=== PATIENT | female | born 1990 | race Caucasian/White ===

== ENCOUNTER 2020-08-25 09:56 | Inpatient (IN) ==
--- NOTE | 2020-08-25 10:38 | Emergency Department Note ---
History of Present Illness General Chief complaint: Fever Stated complaint: FEVERS, HEADACHE Time Seen by Provider: 08/25/20 10:13 History of Present Illness Provider complaint: Fever headache body aches Onset (ago): week(s) 1 Location: head Severity: moderate Maximum Pain Intensity: 6 Current Pain Intensity: 6 Quality: + aching Associated symptoms: + fever/chills; no cough and no nausea/vomiting 29-year-old female presents emergency department for fever, headache, and body aches. Patient reports her symptoms began 1 week ago. She states she has been seen by multiple doctors including at this ER and has been told she is negative for COVID-19 as well as all other tests except for a urinary tract infection. She states her headache and body aches have gotten worse. She states her fever is gotten worse. She denies any rash. Home Medications Home Medications Medication Instructions Recorded Confirmed Type cephalexin [Keflex] 500 mg PO Q6H 7 Days #28 cap 08/21/20 08/25/20 Rx norethindrone-e.estradiol-iron 1 tab PO QAM 08/21/20 08/25/20 History [June12/02 (28)] ibuprofen 200 mg PO Q6H PRN 08/25/20 08/25/20 History Allergies Allergy/AdvReac Type Severity Reaction Status Date / Time aspirin Allergy Anaphylaxis Verified 08/25/20 13:33 ceftriaxone [From Rocephin] Allergy Anaphylaxis Verified 08/25/20 13:33 erythromycin base Allergy Anaphylaxis Verified 08/25/20 13:33 Penicillins Allergy Anaphylaxis Verified 08/25/20 13:33 metamizole Allergy Anaphylaxis Uncoded 08/25/20 13:33 Past Med/Surg History Medical History (Updated 08/25/20 @ 18:47 by Bear Meier) Acute UTI No pertinent family history Surgical History (Updated 08/25/20 @ 10:33 by Bear Meier) No pertinent past surgical history Social History Smoking Status: Never smoker Second Hand Exposure: No; Do You Dip or Chew Tobacco: No; Tobacco Cessation Education Requested by Patient: No Hx Alcohol Use: Yes Alcohol type: wine Hx Substance Use: No Preferred Language: Nepali Communication Ability: Effective Nylon Mender Required: No Beliefs That Will Affect Care: None Current Living Situation: Alone Other Information That Helps Us Care for You: No Feels Safe at Home: Yes Safety Concerns: Feels Safe At This Time Assistive Devices: None Review of Systems A total of 10 systems reviewed and were otherwise negative Physical Exam Vital Signs Vital Signs - 24 hr 08/25/20 10:01 08/25/20 11:35 08/25/20 12:00 Temperature 37 C Temperature Source Oral Pulse Rate 96 H 87 Pulse Rate [Apical] 84 Pulse Rate from SpO2 Sensor 87 Pulse Rhythm Regular Pulse Strength Normal Respiratory Rate 16 20 15 Respiratory Effort / Characteristics Non-Labored Spontaneous Non-Labored Spontaneous Respiratory Depth Normal Normal Respiratory Pattern Regular Regular Blood Pressure 106/70 110/54 L Blood Pressure [Right Arm] 109/63 Blood Pressure Mean 82 64 Blood Pressure Mean [Right Arm] 78 Blood Pressure Position Sitting Pulse Oximetry 98 100 100 Oxygen Delivery Method Room Air Room Air Sepsis Recent Fever Within 48 Hours No Sepsis New/Unexplained Change in Mental Status No Sepsis Action Taken by Nursing No Action Required 08/25/20 12:30 08/25/20 13:00 08/25/20 13:30 Temperature Temperature Source Pulse Rate 80 96 H 96 H Pulse Rate [Apical] Pulse Rate from SpO2 Sensor 79 95 H 90 Pulse Rhythm Pulse Strength Respiratory Rate 22 15 17 Respiratory Effort / Characteristics Respiratory Depth Respiratory Pattern Blood Pressure 103/58 L 104/54 L 98/59 L Blood Pressure [Right Arm] Blood Pressure Mean 66 59 73 Blood Pressure Mean [Right Arm] Blood Pressure Position Pulse Oximetry 99 99 100 Oxygen Delivery Method Sepsis Recent Fever Within 48 Hours Sepsis New/Unexplained Change in Mental Status Sepsis Action Taken by Nursing 08/25/20 13:32 08/25/20 14:37 08/25/20 15:29 Temperature Temperature Source Pulse Rate 106 H Pulse Rate [Apical] 98 H Pulse Rate from SpO2 Sensor 111 H 99 H Pulse Rhythm Pulse Strength Respiratory Rate 20 30 H Respiratory Effort / Characteristics Non-Labored Spontaneous Respiratory Depth Normal Respiratory Pattern Regular Blood Pressure 118/69 119/78 Blood Pressure [Right Arm] 98/59 L Blood Pressure Mean 92 90 Blood Pressure Mean [Right Arm] 72 Blood Pressure Position Pulse Oximetry 97 99 99 Oxygen Delivery Method Room Air Sepsis Recent Fever Within 48 Hours Sepsis New/Unexplained Change in Mental Status Sepsis Action Taken by Nursing 08/25/20 16:00 Temperature Temperature Source Pulse Rate Pulse Rate [Apical] Pulse Rate from SpO2 Sensor 96 H Pulse Rhythm Pulse Strength Respiratory Rate Respiratory Effort / Characteristics Respiratory Depth Respiratory Pattern Blood Pressure 129/73 Blood Pressure [Right Arm] Blood Pressure Mean 94 Blood Pressure Mean [Right Arm] Blood Pressure Position Pulse Oximetry 100 Oxygen Delivery Method Sepsis Recent Fever Within 48 Hours Sepsis New/Unexplained Change in Mental Status Sepsis Action Taken by Nursing Physical Exam GENERAL: She is oriented to person, place, and time. She appears well-developed and well-nourished. She does not appear distressed. HENT: Exam performed. -Head: Normocephalic and atraumatic. -Right Ear: External ear normal. No mastoid tenderness. -Left Ear: External ear normal. No mastoid tenderness. -Mouth/Throat: The oropharynx is clear and moist. No trismus in the jaw. No dental abscesses or uvula swelling. No oropharyngeal exudate or tonsillar abscesses. No oral ulcerations. EYES: Conjunctivae and EOM are normal. Pupils are equal, round, and reactive to light. Right eye exhibits no discharge. Left eye exhibits no discharge. No scleral icterus. Mild photophobia. NECK: Normal range of motion. Neck supple. No JVD present. No spinous process tenderness present. No carotid bruit present. No rigidity. No tracheal deviation and normal range of motion present. No Brudzinski's sign and no Kernig's sign noted. CV: Normal rate, regular rhythm, normal heart sounds and intact distal pulses. T here is no peripheral edema. Palpable radial pulses bue. PULM/CHEST: Effort normal and breath sounds normal. No respiratory distress. No stridor. She has no wheezes. She has no rales. -Chest Wall: She exhibits no tenderness. ABD: The abdomen is soft. Bowel sounds are normal. She has no distension. No mass is present. There is no tenderness. There is no rebound, no guarding, no Mata's sign and no tenderness at McBurney's point. Rovsig negative MUSC/SKEL: Normal range of motion. There is no peripheral edema, tenderness or deformity. LYMPH: No cervical adenopathy. NEURO: She is alert and oriented to person, place, and time. She has normal strength. No cranial nerve deficit or sensory deficit. Coordination and gait normal. GCS eye subscore is 4. GCS verbal subscore is 5. GCS motor subscore is 6. Cerebellar tests wnl. SKIN: Skin is warm and dry. She is not diaphoretic. PSYCH: She has a normal mood and affect. Behavior is normal. Judgment and thought content normal. Procedures Lumbar Puncture Time Out Performed: Yes Patient Position: upright Skin Prep: Povidone-Iodine 1% Local Anesthetic: lidocaine 1% Amount of anesthesia used (mL): 12 Spinal Needle Gauge: 20G Interspace Used: L4-L5 Complications: unable to obtain CSF Course Course 1013: The patient was evaluated in room A4. A complete history and physical exam was performed. EMR reviewed. Patient was seen in the emergency department on August 21, 2020 4 days ago. Per the HPI at that time the patient had a negative COVID test done 2 days prior to that visit on, August 19, 2020. At that time she also had oral ulcerations. At that time she had a white blood cell count of 13.35. She had a CT scan of her head, soft tissue neck, and abdomen pelvis CT all of which were within normal limits. Her chest x-ray was within normal limits. Patient also checked into the emergency department yesterday, August 24, 2020. Per the triage assessment done yesterday the patient had a fever and a headache and was reporting a COVID test that was -2 weeks ago. Patient left the triage area yesterday on August 24, 2020 without being seen or assessed by a physician or midlevel. 1434: Vital signs stable. Patient has mild leukocytosis of 12.4. Patient continues to report headache and photophobia. COVID and bio fire negative. Decision was made to rule out meningitis given her reported fevers and headache s. Lumbar puncture was attempted by me. Multiple attempts were conducted with the patient sitting upright and leaning forward as well as in the left lateral decubitus position however no CSF was able to be obtained. Spoke with Dr. White radiology who states he will be able to assist and conduct the procedure under fluoroscopy. Patient is in agreement to the plan to have radiology conduct the LP under fluoroscopy. 1715: Vital signs stable. LP performed by radiology. LP shows 581 white blood cells, 24,000 red blood cells, 251 protein. CSF glucose is within normal limits at 41. It is thought that the patient could be suffering from viral meningitis. CSF bio fire panel will be sent and [facility]. Administered Medications Discontinued Medications Acetaminophen (Acetaminophen 500 Mg Tab) 1,000 mg PO NOW STA Stop: 08/25/20 17:23 Last Admin: 08/25/20 17:30 Dose: 1,000 mg Documented by: [id number] Lorazepam (Ativan) 1 mg in 2 mls @ 2 mls/min IV NOW STA Stop: 08/25/20 13:42 Last Admin: 08/25/20 14:04 Dose: 2 mls/min Documented by: [id number] Lidocaine/Epinephrine (Lidocaine/Epinephrine 1% 20 Ml Vial) Confirm Administered Dose 20 ml .ROUTE .STK-MED ONE Stop: 08/25/20 13:51 Last Admin: 08/25/20 13:53 Dose: 20 ml Documented by: [id number] Morphine Sulfate (Morphine Sulfate 2 Mg/Ml Carp) 2 mg IV NOW Stop: 08/25/20 13:42 Last Admin: 08/25/20 14:04 Dose: 2 mg Documented by: [id number] Medical Decision Making Laboratory Data Result diagrams: 08/25/20 11:15 08/25/20 11:15 Lab Results 08/25/20 08/25/20 08/25/20 Range/Units 11:15 11:15 11:30 WBC 12.43 H (4.8-10.8) K/uL RBC 3.92 L (4.2-5.4) M/uL Hgb 12.5 (12.0-16.0) g/dL Hct 36.0 L (37-47) % MCV 91.8 (80-100) fL MCH 31.9 (25-34) pg MCHC 34.7 (32-36) g/dL RDW Std Deviation 42.2 (36.4-46.3) fL RDW Coeff of Kieran 12.5 (11.5-14.5) % Plt Count 389 (130-400) K/uL MPV 9.0 (7.4-10.4) fL Immature Gran % (Auto) 0.4 % Neut % (Auto) 72.4 % Lymph % (Auto) 17.0 % [place] % (Auto) 9.5 % Eos % (Auto) 0.5 % Baso % (Auto) 0.2 % Neut # (Auto) 9.01 H (1.4-6.5) K/uL Lymph # (Auto) 2.11 (1.2-3.4) K/uL [place] # (Auto) 1.18 H (0.11-0.59) K/uL Eos # (Auto) 0.06 (0-0.5) K/uL Baso # (Auto) 0.02 (0-0.2) K/uL Immature Gran # (Auto) 0.05 H (0.00-0.02) K/uL Sodium 140 (136-145) mmol/L Potassium 3.8 (3.5-5.1) mmol/L Chloride 105 (98-107) mmol/L Carbon Dioxide 27 (21-32) mmol/L Anion Gap 8.0 (3-11) BUN 8 (7-18) mg/dl Creatinine 0.71 (0.6-1.2) mg/dl Est Cr Clr Drug Dosing 99.9 ml/min Est GFR ( Amer) 131.5 Est GFR (Non-Af Amer) 113.5 BUN/Creatinine Ratio 11.0 (10-20) Glucose 87 (70-99) mg/dl Calcium 9.9 (8.5-10.1) mg/dl CSF Appearance CSF Color Xanthrochromic CSF WBC (0-5) /uL CSF RBC (0-) /uL CSF Cell Count Tube # CSF Mononuclear WBCs % % CSF Polynuclear WBCs % % CSF Chemistry Tube # CSF Glucose (40-70) mg/dl CSF Total Protein (15-45) mg/dl CSF C.neoform/gat PCR (NotDetected) CSF CMV DNA (PCR) (NotDetected) CSF Enterovirus (PCR) (NotDetected) CSF E. coli K1 (PCR) (NotDetected) CSF H. influenzae (PCR) (NotDetected) CSF HSV I (PCR) (NotDetected) CSF HSV II (PCR) (NotDetected) CSF HHV 6 (PCR) (NotDetected) CSF L.monocytogenes PCR (NotDetected) CSF N. meningitidis PCR (NotDetected) CSF Parechovirus (PCR) (NotDetected) CSF S. agalactiae (PCR) (NotDetected) CSF S. pneumoniae (PCR) (NotDetected) CSF VZV DNA (PCR) (NotDetected) Adenovirus (PCR) Not Detected (NotDetected) B. pertussis DNA (PCR) Not Detected (NotDetected) B.parapertussis DNA PCR Not Detected (NotDetected) C. pneumoniae DNA (PCR) Not Detected (NotDetected) Coronavirus OC43 (PCR) Not Detected (NotDetected) Coronavirus HKU1 (PCR) Not Detected (NotDetected) Coronavirus 229E (PCR) Not Detected (NotDetected) COVID-19 Eval Order COVID-19 PCR Not Detected (NotDetected) Coronavirus NL63 (PCR) Not Detected (NotDetected) Human Metapneumovir PCR Not Detected (NotDetected) Influenza Type A (PCR) Not Detected (NotDetected) Influenza Type B (PCR) Not Detected (NotDetected) M. pneumoniae (PCR) Not Detected (NotDetected) Parainfluenza 1 (PCR) Not Detected (NotDetected) Parainfluenza 2 (PCR) Not Detected (NotDetected) Parainfluenza 3 (PCR) Not Detected (NotDetected) Parainfluenza 4 (PCR) Not Detected (NotDetected) RSV (PCR) Not Detected (NotDetected) Entero/Rhino (PCR) Not Detected (NotDetected) 08/25/20 08/25/20 08/25/20 Range/Units 11:35 11:35 15:20 WBC (4.8-10.8) K/uL RBC (4.2-5.4) M/uL Hgb (12.0-16.0) g/dL Hct (37-47) % MCV (80-100) fL MCH (25-34) pg MCHC (32-36) g/dL RDW Std Deviation (36.4-46.3) fL RDW Coeff of Kieran (11.5-14.5) % Plt Count (130-400) K/uL MPV (7.4-10.4) fL Immature Gran % (Auto) % Neut % (Auto) % Lymph % (Auto) % [place] % (Auto) % Eos % (Auto) % Baso % (Auto) % Neut # (Auto) (1.4-6.5) K/uL Lymph # (Auto) (1.2-3.4) K/uL [place] # (Auto) (0.11-0.59) K/uL Eos # (Auto) (0-0.5) K/uL Baso # (Auto) (0-0.2) K/uL Immature Gran # (Auto) (0.00-0.02) K/uL Sodium (136-145) mmol/L Potassium (3.5-5.1) mmol/L Chloride (98-107) mmol/L Carbon Dioxide (21-32) mmol/L Anion Gap (3-11) BUN (7-18) mg/dl Creatinine (0.6-1.2) mg/dl Est Cr Clr Drug Dosing ml/min Est GFR ( Amer) Est GFR (Non-Af Amer) BUN/Creatinine Ratio (10-20) Glucose (70-99) mg/dl Calcium (8.5-10.1) mg/dl CSF Appearance BLOODY CSF Color RED Xanthrochromic No xanthochromia CSF WBC 581 H* (0-5) /uL CSF RBC 22604 (0-) /uL CSF Cell Count Tube # 3 CSF Mononuclear WBCs % 50.9 % CSF Polynuclear WBCs % 49.1 % CSF Chemistry Tube # CSF Glucose (40-70) mg/dl CSF Total Protein (15-45) mg/dl CSF C.neoform/gat PCR (NotDetected) CSF CMV DNA (PCR) (NotDetected) CSF Enterovirus (PCR) (NotDetected) CSF E. coli K1 (PCR) (NotDetected) CSF H. influenzae (PCR) (NotDetected) CSF HSV I (PCR) (NotDetected) CSF HSV II (PCR) (NotDetected) CSF HHV 6 (PCR) (NotDetected) CSF L.monocytogenes PCR (NotDetected) CSF N. meningitidis PCR (NotDetected) CSF Parechovirus (PCR) (NotDetected) CSF S. agalactiae (PCR) (NotDetected) CSF S. pneumoniae (PCR) (NotDetected) CSF VZV DNA (PCR) (NotDetected) Adenovirus (PCR) (NotDetected) B. pertussis DNA (PCR) (NotDetected) B.parapertussis DNA PCR (NotDetected) C. pneumoniae DNA (PCR) (NotDetected) Coronavirus OC43 (PCR) (NotDetected) Coronavirus HKU1 (PCR) (NotDetected) Coronavirus 229E (PCR) (NotDetected) COVID-19 Eval Order Dup asRespPanOrdered COVID-19 PCR Cancelled (NotDetected) Coronavirus NL63 (PCR) (NotDetected) Human Metapneumovir PCR (NotDetected) Influenza Type A (PCR) (NotDetected) Influenza Type B (PCR) (NotDetected) M. pneumoniae (PCR) (NotDetected) Parainfluenza 1 (PCR) (NotDetected) Parainfluenza 2 (PCR) (NotDetected) Parainfluenza 3 (PCR) (NotDetected) Parainfluenza 4 (PCR) (NotDetected) RSV (PCR) (NotDetected) Entero/Rhino (PCR) (NotDetected) 08/25/20 08/25/20 Range/Units 15:20 15:20 WBC (4.8-10.8) K/uL RBC (4.2-5.4) M/uL Hgb (12.0-16.0) g/dL Hct (37-47) % MCV (80-100) fL MCH (25-34) pg MCHC (32-36) g/dL RDW Std Deviation (36.4-46.3) fL RDW Coeff of Kieran (11.5-14.5) % Plt Count (130-400) K/uL MPV (7.4-10.4) fL Immature Gran % (Auto) % Neut % (Auto) % Lymph % (Auto) % [place] % (Auto) % Eos % (Auto) % Baso % (Auto) % Neut # (Auto) (1.4-6.5) K/uL Lymph # (Auto) (1.2-3.4) K/uL [place] # (Auto) (0.11-0.59) K/uL Eos # (Auto) (0-0.5) K/uL Baso # (Auto) (0-0.2) K/uL Immature Gran # (Auto) (0.00-0.02) K/uL Sodium (136-145) mmol/L Potassium (3.5-5.1) mmol/L Chloride (98-107) mmol/L Carbon Dioxide (21-32) mmol/L Anion Gap (3-11) BUN (7-18) mg/dl Creatinine (0.6-1.2) mg/dl Est Cr Clr Drug Dosing ml/min Est GFR ( Amer) Est GFR (Non-Af Amer) BUN/Creatinine Ratio (10-20) Glucose (70-99) mg/dl Calcium (8.5-10.1) mg/dl CSF Appearance CSF Color Xanthrochromic CSF WBC (0-5) /uL CSF RBC (0-) /uL CSF Cell Count Tube # CSF Mononuclear WBCs % % CSF Polynuclear WBCs % % CSF Chemistry Tube # 1 CSF Glucose 41 (40-70) mg/dl CSF Total Protein 251.0 H (15-45) mg/dl CSF C.neoform/gat PCR Not Detected (NotDetected) CSF CMV DNA (PCR) Not Detected (NotDetected) CSF Enterovirus (PCR) Not Detected (NotDetected) CSF E. coli K1 (PCR) Not Detected (NotDetected) CSF H. influenzae (PCR) Not Detected (NotDetected) CSF HSV I (PCR) Not Detected (NotDetected) CSF HSV II (PCR) Not Detected (NotDetected) CSF HHV 6 (PCR) Not Detected (NotDetected) CSF L.monocytogenes PCR Not Detected (NotDetected) CSF N. meningitidis PCR Not Detected (NotDetected) CSF Parechovirus (PCR) Not Detected (NotDetected) CSF S. agalactiae (PCR) Not Detected (NotDetected) CSF S. pneumoniae (PCR) Not Detected (NotDetected) CSF VZV DNA (PCR) Not Detected (NotDetected) Adenovirus (PCR) (NotDetected) B. pertussis DNA (PCR) (NotDetected) B.parapertussis DNA PCR (NotDetected) C. pneumoniae DNA (PCR) (NotDetected) Coronavirus OC43 (PCR) (NotDetected) Coronavirus HKU1 (PCR) (NotDetected) Coronavirus 229E (PCR) (NotDetected) COVID-19 Eval Order COVID-19 PCR (NotDetected) Coronavirus NL63 (PCR) (NotDetected) Human Metapneumovir PCR (NotDetected) Influenza Type A (PCR) (NotDetected) Influenza Type B (PCR) (NotDetected) M. pneumoniae (PCR) (NotDetected) Parainfluenza 1 (PCR) (NotDetected) Parainfluenza 2 (PCR) (NotDetected) Parainfluenza 3 (PCR) (NotDetected) Parainfluenza 4 (PCR) (NotDetected) RSV (PCR) (NotDetected) Entero/Rhino (PCR) (NotDetected) [facility] Narrative 1013: The patient was evaluated in room A4. A complete history and physical exam was performed. EMR reviewed. Patient was seen in the emergency department on August 21, 2020 4 days ago. Per the HPI at that time the patient had a negative COVID test done 2 days prior to that visit on, August 19, 2020. At that time she also had oral ulcerations. At that time she had a white blood cell count of 13.35. She had a CT scan of her head, soft tissue neck, and abdomen pelvis CT all of which were within normal limits. Her chest x-ray was within normal limits. Patient also checked into the emergency department yesterday, August 24, 2020. Per the triage assessment done yesterday the patient had a fever and a headache and was reporting a COVID test that was -2 weeks ago. Patient left the triage area yesterday on August 24, 2020 without being seen or assessed by a physician or midlevel. 1434: Vital signs stable. Patient has mild leukocytosis of 12.4. Patient continues to report headache and photophobia. COVID and bio fire negative. D ecision was made to rule out meningitis given her reported fevers and headaches. Lumbar puncture was attempted by me. Multiple attempts were conducted with the patient sitting upright and leaning forward as well as in the left lateral decubitus position however no CSF was able to be obtained. Spoke with Dr. White radiology who states he will be able to assist and conduct the procedure under fluoroscopy. Patient is in agreement to the plan to have radiology conduct the LP under fluoroscopy. 1715: Vital signs stable. LP performed by radiology. LP shows 581 white blood cells, 24,000 red blood cells, 251 protein. CSF glucose is within normal limits at 41. It is thought that the patient could be suffering from viral meningitis. CSF bio fire panel will be sent and [facility] notified. Impression & Plan Meningitis, viral Discharge Plan Visit Data Chief Complaint: Fever Stated Complaint: FEVERS, HEADACHE ED Provider: Bear Meier Discharge Problem: Meningitis, viral Patient Disposition: Admitted As Inpatient Forms Stand Alone Forms: My [facility] Prescriptions Prescriptions: No Action ibuprofen 200 mg Tablet 200 mg PO Q6H PRN (Reason: Fever/pain) RF: 0 norethindrone-e.estradiol-iron [Junel FE 12/02 (28)] 1 mg-20 mcg (21)/75 mg (7) tablet 1 tab PO QAM RF: 0 cephalexin [Keflex] 500 mg capsule 500 mg PO Q6H 7 Days Qty: 28 RF: 0 Referrals Referrals: [facility] [Primary Care Provider] -
[2020-08-25 11:25] LABS: Basophils # (auto) 0.02 K/uL (0-0.2); Basophils % (auto) 0.2 %; Eosinophils # (auto) 0.06 K/uL (0-0.5); Eosinophils % (auto) 0.5 %; Hemoglobin 12.5 g/dL (12.0-16.0); Immature Granulocytes # (auto) 0.05 K/uL (0.00-0.02); Immature Granulocytes % (auto) 0.4 %; Lymphocytes # (auto) 2.11 K/uL (1.2-3.4); Mean Corpuscular Hemoglobin 31.9 pg (25-34); Mean Corpuscular Hgb Conc 34.7 g/dL (32-36); Mean Corpuscular Volume 91.8 fL (80-100); Monocytes # (auto) 1.18 K/uL (0.11-0.59); Monocytes % (auto) 9.5 %; Neutrophils # (auto) 9.01 K/uL (1.4-6.5); Neutrophils % (auto) 72.4 %; Platelet Count 389 K/uL (130-400); RDW Coefficient of Variation 12.5 % (11.5-14.5); RDW Standard Deviation 42.2 fL (36.4-46.3); Red Blood Count 3.92 M/uL (4.2-5.4); White Blood Count 12.43 K/uL (4.8-10.8)
[2020-08-25 11:42] LABS: Calcium 9.9 mg/dl (8.5-10.1); Creatinine Clr Calc Pharmacy 99.9 ml/min; Est GFR (African American) 131.5; Est GFR (Non-African American) 113.5; Potassium 3.8 mmol/L (3.5-5.1)
[2020-08-25 13:08] LABS: Adenovirus PCR Not Detected (NotDetected); Bordetella parapertussis PCR Not Detected (NotDetected); Bordetella pertussis PCR Not Detected (NotDetected); Chlamydia pneumoniae PCR Not Detected (NotDetected); Coronavirus 229E PCR Not Detected (NotDetected); Coronavirus CoV-2 (COVID19)PCR Not Detected (NotDetected); Coronavirus HKU1 PCR Not Detected (NotDetected); Coronavirus NL63 PCR Not Detected (NotDetected); Coronavirus OC43PCR Not Detected (NotDetected); Human Metapneumovirus PCR Not Detected (NotDetected); Influenza A PCR Not Detected (NotDetected); Influenza B PCR Not Detected (NotDetected); Mycoplasma pneumoniae PCR Not Detected (NotDetected); Parainfluenza Virus 1 PCR Not Detected (NotDetected); Parainfluenza Virus 2 PCR Not Detected (NotDetected); Parainfluenza Virus 3 PCR Not Detected (NotDetected); Parainfluenza Virus 4 PCR Not Detected (NotDetected); Respiratory Syncytial VirusPCR Not Detected (NotDetected); Rhinovirus/Enterovirus PCR Not Detected (NotDetected)
[2020-08-25] MEDS ORDERED: LORazepam 1 MG/2 ML VIAL IV STA (13:41)
[2020-08-25] MEDS ORDERED: MoRPHine SULFATE 2 MG/ML CARP IV STA (13:41)
[2020-08-25] MEDS ORDERED: LIDOCAINE/EPINEPHRINE 1% 20 ML VIAL ONE (13:50)
--- NOTE | 2020-08-25 15:30 | Fluoroscopy Report ---
FLUOROSCOPIC GUIDED LUMBAR PUNCTURE CLINICAL HISTORY: Fever. Headache. Congestion. PROCEDURE: The risks, benefits, and alternatives to the procedure is discussed with the patient who v oiced understanding. Written informed consent was obtained. The patient was placed prone on the fluor oscopy table. The lower back was prepped and draped in the usual sterile fashion. 1% lidocaine was us ed for local anesthesia. A 20-gauge spinal needle was inserted into the L3-L4 interlaminar space, and approximately 10 cc of blood-tinged cerebrospinal fluid was removed. 3 spot images were saved. The p atient tolerated the procedure well. There were no immediate complications. The patient was then retu rned to the emergency department for further observation. Fluoroscopy time: 0.3 minutes IMPRESSION: Fluoroscopic guided lumbar puncture with removal of approximately 10 cc of cerebrospinal fluid. There were no immediate complications. ACT 112: Negative or not required by law. Electronically signed by: Gilberto Davis M.D. 08/25/2020 3:29 PM
[2020-08-25 16:26] LABS: Appearance CSF BLOODY; Color CSF RED; Mononuclear WBC CSF 50.9 %; Polynuclear WBC CSF 49.1 %; Red Blood Cell CSF (A) 24000 /uL (0-); White Blood Cell CSF (A) 581 /uL (0-5)
[2020-08-25 16:29] LABS: CSF Count Tube # 3
[2020-08-25 16:30] LABS: CSF Xanthrochromic No xanthochromia
[2020-08-25] MEDS ORDERED: ACETAMINOPHEN 500 MG TAB PO STA (17:22)
--- NOTE | 2020-08-25 17:22 | History & Physical Report ---
Date of Service August 25, 2020 Assessment & Plan (1) Viral meningitis: Not particularly meningeal with lack of neck stiffness although patient having progressively worsening headache. No focal neurology. Biofire PCR pending however clinically high likelihood of herpes simplex given chronic recurrent mouth ulcers. Bloody tap with 24,000 RBCs, will request CBC diff from 1st bottle to ensure decreasing. Lack of xanthochromatic and clinical presentation not consistent with SAH. Corrected for CSF RBC; protein and WBC elevated consistent with viral meningitis. WBC Diff pending. Gram stain; moderate WBCs, no organisms, follow up culture. Start acyclovir as below. (2) Herpes simplex: Contact precautions IV Acyclovir 10 mg/kg every 8 hours, switch to p.o. once clinical improvement for total 14-day course. Recommend discussing prophylaxis on discharge given recurrent nature. Admission and Anticipated Discharge Date Admission Date: 08/25/2000 History of Present Illness Chief Complaint: Viral syndrome Primary Care Provider: [facility] Margarettemontana Capps is a 29 year old female who presents to the ER with viral syndrome of rash, sore throat, fever, headache, generalized myalgias. Her symptoms started 1 week ago. No neck stiffness or pain. Headache severity 8/10 in the front of her head. She reports the headache has been getting worse at this time course. Seen in the ER on August 21 with concern for a papular rash noticed, torso, legs and left hand, mouth ulcers in addition to sore throat. She was treated for a urinary tract infection with Keflex however subsequent urine culture grew lactobacillus and she reports that her any urinary symptoms at the time was frequency and she has been drinking a lot of water which would account for this. Blood cultures are negative to date from that ER visit. No extremity weakness or change in sensation, change in speech, hearing, smell. She has a significant past medical history of recurrent mouth ulcers which are exacerbated with her menstrual cycle and times of increased stress. Her boyfriend does note she has been under increased stress recently. Allergies Allergy/AdvReac Type Severity Reaction Status Date / Time aspirin Allergy Anaphylaxis Verified 08/25/20 13:33 ceftriaxone [From Rocephin] Allergy Anaphylaxis Verified 08/25/20 13:33 erythromycin base Allergy Anaphylaxis Verified 08/25/20 13:33 Penicillins Allergy Anaphylaxis Verified 08/25/20 13:33 metamizole Allergy Anaphylaxis Uncoded 08/25/20 13:33 Home Medications Home Medications Medication Instructions Recorded Confirmed Type norethindrone-e.estradiol-iron 1 tab PO QAM 08/21/20 08/29/20 History [12/02 (28)] ibuprofen 200 mg PO Q6H PRN 08/25/20 08/29/20 History acyclovir 400 mg PO TID #42 tab 08/26/20 08/29/20 Rx Past Med/Surg History Medical History Acute UTI No pertinent family history Surgical History No pertinent past surgical history Family History Other No pertinent family history Social History Smoking Status: Never smoker Second Hand Exposure: No; Hx Alcohol Use: Yes Alcohol type: wine Hx Substance Use: No Preferred Language: Icelandic Communication Ability: Effective 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 Respiratory: normal respiratory effort, lungs clear to auscultation Cardiovascular: RRR, no murmur, no edema Gastrointestinal (Abdomen): normal bowel sounds, soft, nontender, no hepatosplenomegaly Musculoskeletal: no cyanosis or clubbing, extremities motor strength 5/5 Skin: Few papulular/follicular rash over her left leg and chest Neurologic: CN's II-XI intact bilaterally, moves all extremities and awake; no focal motor deficits and not confused Speech / Cognition: normal speech Motor/Sensory: no tremor and no pronator drift Psychiatric: Orientation: alert and oriented x 3 Affect: + anxious affect Genitourinary: no CVA tenderness Lymphatic: no cervical or axillary lymphadenopathy Results & Data Results & [facility] ([facility]) Vital Signs (Past 12 Hours) Vital Signs Temp Pulse Pulse Resp BP BP Pulse Ox 08/25/20 16:00 129/73 100 08/25/20 15:29 119/78 99 08/25/20 14:37 106 H 30 H 118/69 99 08/25/20 13:32 98 H 20 98/59 L 97 08/25/20 13:30 96 H 17 98/59 L 100 08/25/20 13:00 96 H 15 104/54 L 99 08/25/20 12:30 80 22 103/58 L 99 08/25/20 12:00 87 15 110/54 L 100 08/25/20 11:35 84 20 109/63 100 08/25/20 10:01 37 C 96 H 16 106/70 98 PG Care Time/CCT Total # of Minutes Spent Total Time Spent with Patient: Total time spent is greater than 50% in coordination of care (as documented) at patient's floor/unit and/or counseling patient: Coding Level of Care Code 67779 Initial Inpt Care Lvl 3 Diagnoses Viral meningitis A87.9 Herpes simplex B00.9
[2020-08-25 17:48] LABS: Cryptococcus neoformans/ga PCR Not Detected (NotDetected); Cytomegalovirus PCR Not Detected (NotDetected); Enterovirus PCR Not Detected (NotDetected); Escherichia coli K1 PCR Not Detected (NotDetected); Haemophilius influenzae PCR Not Detected (NotDetected); Herpes Simplex Virus 1 PCR Not Detected (NotDetected); Herpes Simplex Virus 2 PCR Not Detected (NotDetected); Human Herpes Virus 6 PCR Not Detected (NotDetected); Human Parechovirus PCR Not Detected (NotDetected); Listeria monocytogenes PCR Not Detected (NotDetected); Neisseria meningitidis PCR Not Detected (NotDetected); Streptococcus agalactiae PCR Not Detected (NotDetected); Streptococcus pneumoniae PCR Not Detected (NotDetected); Varicella Zoster Virus PCR Not Detected (NotDetected)
[2020-08-25] MEDS ORDERED: ACYCLOVIR SOD 650 MG in DEXTROSE 5% 100 ML IV ONE (18:30)
[2020-08-25] MEDS: LACTATED RINGER'S 1,000 ML IV SCH (20:54)
[2020-08-25 23:40] LABS: Appearance CSF BLOODY; Color CSF RED; Red Blood Cell CSF (A) 65000 /uL (0-); White Blood Cell CSF (A) 619 /uL (0-5)
[2020-08-25 23:42] LABS: CSF Count Tube # 1; CSF Xanthrochromic No xanthochromia
[2020-08-26] MEDS: ACETAMINOPHEN 325 MG TAB PO PRN ×3 (02:07→22:57)
[2020-08-26] MEDS: LACTATED RINGER'S 1,000 ML IV SCH (04:11)
[2020-08-26] MEDS: ACYCLOVIR SOD 650 MG in DEXTROSE 5% 100 ML IV SCH ×2 (04:11→13:40)
[2020-08-26 07:36] LABS: Basophils # (auto) 0.02 K/uL (0-0.2); Basophils % (auto) 0.3 %; Eosinophils % (auto) 1.3 %; Hematocrit (blood only) 33.1 % (37-47); Hemoglobin 11.3 g/dL (12.0-16.0); Immature Granulocytes # (auto) 0.05 K/uL (0.00-0.02); Immature Granulocytes % (auto) 0.7 %; Lymphocytes # (auto) 2.26 K/uL (1.2-3.4); Lymphocytes % (auto) 30.4 %; Mean Corpuscular Hemoglobin 31.4 pg (25-34); Mean Corpuscular Hgb Conc 34.1 g/dL (32-36); Mean Corpuscular Volume 91.9 fL (80-100); Mean Platelet Volume 9.1 fL (7.4-10.4); Monocytes # (auto) 0.73 K/uL (0.11-0.59); Monocytes % (auto) 9.8 %; Neutrophils # (auto) 4.28 K/uL (1.4-6.5); Neutrophils % (auto) 57.5 %; Platelet Count 393 K/uL (130-400); RDW Coefficient of Variation 12.4 % (11.5-14.5); RDW Standard Deviation 42.4 fL (36.4-46.3); White Blood Count 7.44 K/uL (4.8-10.8)
[2020-08-26] MEDS ORDERED: Nursing to Pharmacy Communication SCH (08:00)
[2020-08-26 08:03] LABS: Albumin Level 2.6 gm/dl (3.4-5.0); BUN Creatinine Ratio 12.3 (10-20); C Reactive Protein 7.91 mg/dl (0-0.29); Calcium 8.7 mg/dl (8.5-10.1); Creatinine Clr Calc Pharmacy 118.2 ml/min; Est GFR (African American) 140.8; Est GFR (Non-African American) 121.5; Potassium 3.3 mmol/L (3.5-5.1)
[2020-08-26 08:06] LABS: Albumin Globulin Ratio 0.7 (0.9-2); Bilirubin,Total 0.6 mg/dl (0.2-1); Total Protein 6.6 gm/dl (6.4-8.2)
--- NOTE | 2020-08-26 10:57 | Neurology Consultation ---
Date of Consultation August 26, 2020 Assessment & Plan (1) Viral meningitis: (2) Spinal headache: Nonspecific viral/aseptic meningitis occurring in the context of a flulike syndrome that began 10 days ago. Patient's mentation is intact, she has a nonfocal neurological examination and she has no nuchal rigidity. I expect her condition to gradually improve with time and supportive care. She probably does not require continued treatment with acyclovir. However, it does look like she has a spinal headache following her lumbar puncture yesterday. Continue to monitor this issue over the next 24 hours, if it persists would recommend consultation with anesthesia for a blood patch. I do not think a brain MRI is absolutely necessary at this point in time. However, if her condition should significantly change, would consider obtaining a brain MRI with and without contrast. As above, continue current supportive medical care. Please contact me with any questions. 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 She was initially seen in our emergency department on August 21 for the symptoms as well as a nonspecific papular rash and mouth sores. She underwent a fairly thorough evaluation at that time that included an unremarkable CT of the head, CT of the soft tissue of the neck, CT of the abdomen and pelvis, and chest x-ray. She was felt to have a nonspecific viral syndrome although was given a prescription for Keflex with additional instructions for self-directed home care at that time. She presented again to our emergency department yesterday morning complaining of the above, persistent, progressive headache with associated sleep disruption. She un derwent a lumbar puncture at that time which revealed findings suggestive of probable viral meningitis. Testing described in further detail below. She has been treated with IV acyclovir although a CSF meningoencephalitis panel is negative. The patient is appropriate, she is not delirious, she has not exhibited any further neurological signs or symptoms. No seizures or strokelike symptoms, no nuchal rigidity. She does complain of a postural headache this morning that seems to improve with lying flat. She also complains of some low- grade low back pain related to her recent lumbar puncture. Family history noncontributory Allergies Allergy/AdvReac Type Severity Reaction Status Date / Time aspirin Allergy Anaphylaxis Verified 08/25/20 13:33 ceftriaxone [From Rocephin] Allergy Anaphylaxis Verified 08/25/20 13:33 erythromycin base Allergy Anaphylaxis Verified 08/25/20 13:33 Penicillins Allergy Anaphylaxis Verified 08/25/20 13:33 metamizole Allergy Anaphylaxis Uncoded 08/25/20 13:33 Home Medications Home Medications Medication Instructions Recorded Confirmed Type cephalexin [Keflex] 500 mg PO Q6H 7 Days #28 cap 08/21/20 08/25/20 Rx norethindrone-e.estradiol-iron 1 tab PO QAM 08/21/20 08/25/20 History [12/02 (28)] ibuprofen 200 mg PO Q6H PRN 08/25/20 08/25/20 History Patient History Medical History Acute UTI No pertinent family history Surgical History No pertinent past surgical history Social History Smoking Status: Never smoker Second Hand Exposure: No; Do You Dip or Chew Tobacco: No; Tobacco Cessation Education Requested by Patient: No Hx Alcohol Use: Yes Alcohol type: wine Hx Substance Use: No Preferred Language: Polish Communication Ability: Effective 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 Beliefs That Will Affect Care: None Current Living Situation: Alone Other Information That Helps Us Care for You: No Feels Safe at Home: Yes Safety Concerns: Feels Safe At This Time Assistive Devices: None Review of Systems Constitutional: as per Subjective / HPI, + fever, + body aches and + fatigue Eyes: no blind spots and no diplopia Ear, Nose, Mouth, Throat: no ear pain, no tinnitus and no hearing loss Respiratory: no cough and no dyspnea Cardiovascular: no chest pain and no palpitations Gastrointestinal: no nausea and no vomiting Genitourinary: no dysuria Musculoskeletal: as per Subjective / HPI, + back pain, + myalgia and + body aches Integumentary: as per Subjective / HPI, + rash and + lesions Neurologic: as per Subjective / HPI and + headache(s); no gait abnormality, no localized weakness, no loss of sensation, no tremor(s), no seizure-like activity, no syncope, no behavioral changes, no confusion and no memory loss Psychiatric: no depression and no anxiety Hematologic / Lymphatic: no easy bleeding and no easy bruising Exam (Neuro) Constitutional: well developed and well nourished; no acute distress Eyes: normal visual nunez by confrontation, PERRL, normal accommodation and EOM intact bilaterally; no fundoscopic abnormality, no nystagmus and no papilled osmin Cardiovascular: Vessels: normal carotid upstroke; no carotid bruit Neurologic: Oriented to:: Person, Place and Time Memory: Short Term Intact and Remote Intact Attention: Span Intact and Concentration Intact Language: Naming Objects and Repeating Phrases Speech Fluency: negative Dysarthria Speech Aphasia: negative Aphasia Fund of Knowledge: Current Events, Past History and Vocabulary Cranial Nerves: Normal II (Visual nunez full to confrontation, visual acuity normal), III, IV, (Pupils equal round reactive to light and accommodation, eye movements normal), V (Facial sensation intact), VII (There is no facial droop or weakness), VIII (Hearing intact), IX, X (Palate elevates to midline), XI (Shoulder shrug intact) and XII (Tongue protrudes to midline) Motor Strength: Normal Lower Extremities and Normal Upper Extremities; negative Pronator Drift Motor Tone: Normal Lower Extremities and Normal Upper Extremities Muscle Bulk/Involuntary Movements: No Involuntary Movements; negative Muscle Atrophy Sensation: Light Touch Intact, Pain/Temperature Intact, Vibration Intact and Proprioception Intact Coordination: Normal; negative Limited Balance, Dysdiadochokinesia, Finger-Nose Abnormal and Heel-Rollins Abnormal Deep Tendon Reflexes: Rt Triceps: 2+, Lt Triceps: 2+, Rt Biceps: 2+, Lt Biceps: 2+, Rt Brachioradialis: 2+, Lt Brachioradialis: 2+, Rt Patellar: 2+, Lt Patellar: 2+, Rt Ankle: 2+ and Lt Ankle: 2+ Special Tests: negative Babinski Present Gait: Normal Station and Gait Details: Patient's neck is supple. She did complain of a mild to moderate frontal headache that was triggered by sitting up, and alleviated with lying back in bed during examination. Results & Data ([facility]) Vital Signs (Past 12 Hours) Vital Signs Temp Pulse Resp BP Pulse Ox 08/26/20 07:27 36.6 C 82 16 109/73 100 08/25/20 23:10 37.1 C 75 18 93/55 L 97 Laboratory Results WBC 7.44, hemoglobin 11.3, hematocrit 33.1, platelet count 393, ESR 55, sodium 141, potassium 3.3, BUN 7, creatinine 0.60, glucose 78, AST 8, ALT 12, CRP 7.91, CSF bloody, red, no xanthochromia, CSF WBC 581 and 619, CSF RBC 24,000 and 65,000, CSF protein 251, CSF meningoencephalitis panel including bacterial, viral, and cryptococcal PCR negative, CSF Gram stain revealed moderate white blood cells, no organisms, cultures pending Diagnostic Findings CT of the head completed August 21, 2020 normal. No parenchymal disease. No hemorrhage or acute process. No hydrocephalus. I reviewed the images as well as the radiologist interpretation of this test. Patient's lumbar puncture was completed under fluoroscopy yesterday. CSF noted to be blood-tinged. Opening pressure was not obtained. An electrocardiogram completed on August 21, 2020 revealed a normal sinus rhythm, 87 bpm. Coding Level of Care Code 55711 Inpt Consult Level 5 Diagnoses Viral meningitis A87.9 Spinal headache G97.1
[2020-08-26] MEDS ORDERED: GADOBUTROL 65ML VIAL IV ONE (13:21)
--- NOTE | 2020-08-26 13:41 | Magnetic Resonance Report ---
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 COMPARISON STUDY: Noncontrast head CT dated 08/21/2020 TECHNIQUE: MRI of the brain was performed from the vertex to the skull base utilizing various T1 and T2 weighted sequences. Following the IV administration of mL of Gadavist contrast, additional enhance d images were obtained. FINDINGS: Sagittal T1, axial diffusion, proton density and T2 weighted axial, coronal FLAIR, and pre and post a xial T1-weighted images were acquired. These were supplemented with post gadolinium coronal T1 weight ed images. No intra or extra-axial mass lesions are visualized. Axial diffusion-weighted images reveal no evidence of acute or subacute infarction. There is no evidence of ventricular dilatation. Proton density T2-weighted and FLAIR images reveal no significant intraparenchymal signal abnormaliti es. There are no abnormal flow voids. There is equivocal subtle increased dural enhancement (this finding can be seen post lumbar puncture, with infection, as well as with a multitude of other etiologies which are probably not relevant in this patient. There is minimal cerebellar tonsillar ectopia (3 mm) IMPRESSION: 1. Equivocal minimal increased dural enhancement 2. No evidence for intracranial mass 3. No evidence of acute or subacute infarction 4. No evidence of pathologic white matter disease 5. No MRI evidence of hemorrhage 6. Minimal cerebellar tonsillar ectopia. ACT 112: Negative or not required by law. Electronically signed by: Reynaldo Galdamez M.D. 08/26/2020 1:40 PM
--- NOTE | 2020-08-26 13:50 | Magnetic Resonance Report ---
Brain MRA HISTORY: . Bloody tap. Altered mental status. Rule out aneurysm TECHNIQUE: 3-D [id number] MRA of the brain was performed without contrast. COMPARISON STUDY: None. FINDINGS: Visualized intracranial internal carotid arteries, distal vertebral arteries, and basilar a rtery are widely patent. 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 IMPRESSION: No significant stenosis, occlusion, or aneurysm within the [place]. ACT 112: Negative or not required by law. Electronically signed by: Rolando Vigil M.D. 08/26/2020 1:48 PM
[2020-08-26 14:05] LABS: Lyme Ab IgM w/WB Rflx Negative (Negative)
[2020-08-26 14:08] LABS: Lyme Ab IgG w/WB Rflx Negative (Negative)
--- NOTE | 2020-08-26 14:34 | Hospitalist Progress Note ---
Date of Service August 26, 2020 Assessment & Plan (1) Viral meningitis: Per admitter, not particularly meningeal with lack of neck stiffness although patient having progressively worsening headache. - Biofire PCR was negative for all tested etiologies. - Switch acyclovir to PO. (2) Herpes simplex: Contact precautions. - Switch IV acyclovir to oral. - Recommend discussing prophylaxis on discharge given recurrent nature. (3) DVT prophylaxis: SCDs - Low DVT risk per admission calculator Admission and Anticipated Discharge Date Admission Date: August 25, 2020 Subjective Still with a headache. Overall, she is doing better though. Reports no fevers/chills, chest pain, shortness of breath, abdominal pain, nausea, or vomiting. Physical Exam Constitutional: WD/WN, vitals as above Eyes: EOM intact bilaterally; no conjunctival abnormality ENMT: external ear and nose normal, oropharynx normal Neck: trachea midline, no thyromegaly normal visual inspection; no nuchal rigidity Respiratory: normal respiratory effort, lungs clear to auscultation no respiratory distress Cardiovascular: RRR, no murmur, no edema Gastrointestinal (Abdomen): Inspection/Auscultation: abdomen normal to inspection; abdomen not distended Musculoskeletal: no cyanosis or clubbing, extremities motor strength 5/5 Skin: no rashes, warm and dry Neurologic: moves all extremities and awake Psychiatric: Orientation: alert, oriented to person and cooperative Results & Data Results & Data ([facility]) Vital Signs (Past 12 Hours) Vital Signs Temp Pulse Resp BP Pulse Ox 08/26/20 07:27 36.6 C 82 16 109/73 100 PG Care Time/CCT Total # of Minutes Spent Total Time Spent with Patient: Total time spent is greater than 50% in coordination of care (as documented) at patient's floor/unit and/or counseling patient: Coding Level of Care Code 66801 Subseq Hosp Care Lvl 2 Diagnoses Viral meningitis A87.9 Herpes simplex B00.9 DVT prophylaxis Z29.9
[2020-08-26] MEDS: valACYclovir HCL 500 MG TABLET PO SCH (22:26)
[2020-08-27] MEDS: valACYclovir HCL 500 MG TABLET PO SCH (09:27)
--- NOTE | 2020-08-27 11:54 | Neurology Progress Note ---
Date of Service August 27, 2020 Assessment & Plan (1) Viral meningitis: (2) Spinal headache: Aseptic/viral meningitis. Clinically stable. Meningoencephalitis PCR is negative. Acyclovir has been discontinued. I agree with empiric treatment with Valtrex for the next few weeks as the potential risks of this treatment are very low. Prognosis for recovery should be very good. She does not have any neurological deficits or impairments. Her spinal headache seems to be improving on its own as she probably will not require a blood patch. If she continues to experience a significant postural headache over the next several days, however, it would be reasonable to consult with anesthesiology for a blood patch as an outpatient or through the emergency department if necessary. And have any further specific recommendations at this time. Please contact me with any additional questions. Admission and Anticipated Discharge Date Admission Date: August 25, 2020 Subjective Follow-up for suspected viral meningitis The patient indicates that she is feeling modestly improved this morning. She continues to report a low-grade headache although not as severe as yesterday, not specifically triggered by sitting up or walking around, at least not to the same degree. No fevers or chills, no neck stiffness or rigidity, no other specific neurological symptoms. No seizures, strokelike symptoms reported. Patient did complete the requested MRI/MRA of the brain yesterday. I reviewed the images and radiologist interpretation of these tests. No evidence of acute or subacute stroke. There is minimal dural enhancement noted as well as minimal cerebellar tonsillar ectopia. No evidence of hemorrhage. No aneurysm on angiography. Review of Systems Constitutional: + fatigue; no fever Eyes: no blind spots and no diplopia Neurologic: as per Subjective / HPI and + headache(s); no gait abnormality, no localized weakness and no loss of sensation Results & Data ([facility]) Vital Signs (Past 12 Hours) Vital Signs Temp Pulse Resp BP Pulse Ox 08/27/20 07:16 37.4 C 78 18 106/64 98 Laboratory Results CSF culture, no growth. Exam (Neuro) Constitutional: well developed and well nourished; no acute distress Neurologic: Oriented to:: Person, Place and Time Memory: Short Term Intact and Remote Intact Attention: Span Intact and Concentration Intact Speech Fluency: negative Dysarthria Speech Aphasia: negative Aphasia Fund of Knowledge: Current Events, Past History and Vocabulary Cranial Nerves: Normal II, III, IV, , V, VII, VIII, IX, X, XI and XII Motor Strength: Normal Lower Extremities and Normal Upper Extremities Muscle Bulk/Involuntary Movements: No Involuntary Movements; negative Muscle Atrophy Sensation: Light Touch Intact and Proprioception Intact Coordination: Normal; negative Limited Balance, Dysdiadochokinesia, Finger-Nose Abnormal and Heel-Rollins Abnormal Gait: Normal Station and Gait Coding Level of Care Code 55864 Subseq Hosp Care Lvl 2 Diagnoses Viral meningitis A87.9 Spinal headache G97.1
--- NOTE | 2020-08-27 15:45 | Discharge Summary ---
Date of Service August 27, 2020 Admission HPI Per Admitting Provider Last monday with fever headache, sore throat, pain over whole body. rash mouth ulcers Principal Diagnosis Viral meningitis; possibly HSV Discharge Exam Constitutional WD/WN, vitals as above Eyes EOM intact bilaterally; no conjunctival abnormality ENMT external ear and nose normal, oropharynx normal Neck trachea midline, no thyromegaly normal visual inspection; no nuchal rigidity Respiratory normal respiratory effort, lungs clear to auscultation no respiratory distress Cardiovascular RRR, no murmur, no edema Gastrointestinal (Abdomen) Inspection/Auscultation: abdomen normal to inspection; abdomen not distended Musculoskeletal no cyanosis or clubbing, extremities motor strength 5/5 Skin no rashes, warm and dry Neurologic moves all extremities and awake Psychiatric Orientation: alert, oriented to person and cooperative Discharge Data Allergies Allergy/AdvReac Type Severity Reaction Status Date / Time aspirin Allergy Anaphylaxis Verified 08/25/20 13:33 ceftriaxone [From Rocephin] Allergy Anaphylaxis Verified 08/25/20 13:33 erythromycin base Allergy Anaphylaxis Verified 08/25/20 13:33 Penicillins Allergy Anaphylaxis Verified 08/25/20 13:33 metamizole Allergy Anaphylaxis Uncoded 08/25/20 13:33 Consultations 08/25/20 17:16 ED Decision to Admit Stat 08/26/20 07:35 Consult Neurology Routine Ordered Studies 08/25/20 14:33 FL lumbar puncture diagnostic Stat 08/26/20 11:07 MR angio head wo con Routine MR brain wo/w con Routine Hospital Course (1) Viral meningitis: Per admitter, not particularly meningeal with lack of neck stiffness although patient having progressively worsening headache. - Biofire PCR was negative for all tested etiologies. - MRI brain done on 08/26 showed mild dural enhancement that may have been just because of the lumbar puncture itself. Given the constellation of signs/symptoms, it was felt best to treat the cold sores with acyclovir and continue a 2 week course. - The patient had a spinal headache that seemed to slowly be improving by discharge. She was instructed to follow up with [facility] or if needed return to the ER in 3-4 days for a possible blood patch. (2) Herpes simplex: Contact precautions. - Switched IV acyclovir to oral. - Recommend discussing prophylaxis with PCP given recurrent nature. (3) DVT prophylaxis: SCDs - Low DVT risk per admission calculator Total Time Total Time Spent Total Time Spent (In Minutes): 35 Discharge Plan Discharge Items Patient Disposition: Home - Self-Care Reason For Visit: viral meningitis Discharge Diagnosis: Viral meningitis Activity: Resume your previous activity Non-emergency contact: Primary Care Provider Call non-emergency contact if: your symptoms worsen and your temperature is above 101 Follow-up/Referrals: [facility] [Primary Care Provider] - 09/03/20 8:00 am (TELE MEDICINE VISIT CALL [phone] IF YOU NEED TO CHANGE APPT) Diet: Regular Addtl Attending Provider Instructions: You were admitted to the hospital with viral meningitis. This meningitis may be related to the cold sores, and we are sending you home with a prescription for acyclovir. Given you have recurrent symptoms of cold sores, you may want to speak with your PCP about having a prescription at home to take at the earliest sign of a cold sore. Please take your medication for the next two weeks. Please see your [facility] doctor before you finish. If your headache does not get better in the next 2-3 days, [facility] may be able to help arrange the small procedure that an anesthesiologist needs to do to help make the headache go away. If they cannot help, you can always come back to the Emergency Department, but hopefully we can avoid that. Please come back to the hospital with any further fevers, neck stiffness, shortness of breath, or other concerning symptoms. Pending Studies at Discharge: No Stand-Alone Forms: My [facility] [place], Smoking Cessation Medications and DC Order Prescriptions: New acyclovir 400 mg tablet 400 mg PO TID Qty: 42 RF: 0 Continued ibuprofen 200 mg Tablet 200 mg PO Q6H PRN (Reason: Fever/pain) RF: 0 norethindrone-e.estradiol-iron [12/02 (28)] 1 mg-20 mcg (21)/75 mg (7) tablet 1 tab PO QAM RF: 0 Discontinued cephalexin [Keflex] 500 mg capsule 500 mg PO Q6H 7 Days Qty: 28 RF: 0 Discharge Orders: Discharge Order (Routine); Ordered 08/27/20 Ordered By: Wei Shen/Other Patient Handouts: Self-Care for Headaches, ED Headache Post Spinal Tap No [facility] Admission Data Admit Date/Time: 08/25/20 17:51 Attending Provider: Wei Agosto Admit Provider: Joe Valera Primary Care Provider: [facility] Other Providers: Wei Agosto ; Shad West Other Interventions: Discharge Summary Assessment (RN) Last Done: 08/27/20 12:17 Coding Level of Care Code D/C Day Management >30 mins Diagnoses Viral meningitis A87.9 Herpes simplex B00.9 DVT prophylaxis Z29.9
[2020-08-28 17:01] LABS: Lyme DNA PCR CSF or Synovial Not detected (Not Detected); Lyme DNA Source CSF
[2020-08-30 16:41] LABS: Herpes Simplex Ab IgG-2 3.66 index
== END 2020-08-27 14:05 | disposition home or self-care (01) | DRG 75 ==
LOC: ED 09:56 → 3W 17:51 → SUATTDRO 17:51 → 3W 19:14